=== PATIENT | female | born 1965 | race Caucasian/White ===

== ENCOUNTER 2020-07-18 09:04 | Outpatient (CLI) | payer BC ==
[~2020-07-18] VITALS: Ht 154.9 cm; Wt 81.7 kg
[2020-07-18 08:56] VITALS: BP 138/81
[2020-07-18] MEDS ORDERED: BAMLANIVIMAB 700 MG in NS 200 ML IV ONE (09:15)
[2020-07-18] MEDS ORDERED: EPINEPHrine INJECTION 1 MG/ML AMP IM PRN (09:15)
[2020-07-18] MEDS ORDERED: diphenhydrAMINE 50 MG/ML INJ (BENADRYL) IV PRN (09:15)
[2020-07-18 10:55] VITALS: BP 116/56
== END 2020-07-18 11:40 | disposition home or self-care (01) ==
LOC: INFUSION 09:04
PROVIDERS: ATTEND Physician Assistant
DX: U07.1 COVID-19 (principal)